=== PATIENT | male | born 1975 | race Caucasian/White ===

== ENCOUNTER 2017-09-21 14:39 | Observation (INO) | payer OTHER ==
[~2017-09-21] VITALS: Ht 175.3 cm; Wt 69.5 kg
[~2017-09-21 14:39] MED LIST: AMLODIPINE BES2.5 MG PO; DIAZEPAM5 MG PO; FLEXERIL10 MG PO; FLUOXETINE HCL40 MG PO; MOBIC15 MG PO; MORPHINE SULFAT15 M1 PO; MOTRIN400 MG PO; NASONEX17 GM BOTH NARES; OXYCODONE-APAP1 EACH PO; PERCOCET 5/31 TABLET PO; ZYRTEC10 M3 PO
[2017-09-21 15:25] LABS: EOSINOPHIL (%) 1.3 % (0-5); EOSINOPHIL COUNT 0.1 K/uL (0-0.3); HEMATOCRIT 39.9 % (38.0-50.0); IMMATURE GRANULOCYTE (%) 0.2 % (0.0-0.7); INSTRUMENT ABS NEUTROPHIL CT 7.7 K/uL; LYMPHOCYTE COUNT 1.7 K/uL (1.0-2.8); MCH 30.3 PG (29.0-34.0); MCHC 35.1 G/DL (30.0-36.0); MCV 86.4 FL (86-99); MEAN PLAT.VOLUME 9.3 uM^3 (9.0-12.4); MONOCYTE (%) 5.2 % (3-12); MONOCYTE COUNT 0.5 K/uL (0-0.8); NEUTROPHIL (%) 76.3 % (45-76); NEUTROPHIL COUNT 7.7 K/uL (1.8-6.4); PLATELET COUNT 189 K/uL (156-360); RBC DIS.WIDTH-CV 11.9 % (11.8-14.6); RBC DIS.WIDTH-SD 37.9 % (39-53); RED BLOOD COUNT 4.62 M/uL (4.00-5.50); WHITE BLOOD COUNT 10.1 K/uL (4.1-10.2)
[2017-09-21 15:40] LABS: CHLORIDE 107 mEq/L (99-109); POTASSIUM 3.8 mEq/L (3.7-5.4); SODIUM 138 mEq/L (136-147)
[2017-09-21 15:42] LABS: GLUCOSE 107 mg/dL (70-99)
[2017-09-21 15:43] LABS: ANION GAP 9 MEQ/L (2-14)
[2017-09-21 15:44] LABS: TOTAL BILIRUBIN 0.5 mg/dL (0.0-1.0)
[2017-09-21 15:45] LABS: ALKALINE PHOSPHATASE 65 IU/L (3-129); TROP-I INTERPRETATION NEGATIVE; TROPONIN-I < 0.01 ng/mL (0.0-0.30)
[2017-09-21 15:46] LABS: CK-MB 0.7 ng/mL (0.0-4.9); GFR ESTIMATE (CALCULATED) > 59 mL/min/
[2017-09-21 15:47] LABS: UREA NITROGEN (BUN) 17 mg/dL (9-23)
[2017-09-21 15:49] LABS: CREATINE KINASE 61 IU/L (1-294); TOTAL CK 61 IU/L (1-294)
[2017-09-21] MEDS ORDERED: EXCEDRIN EXTRA1 EACH PO (17:30)
[2017-09-21] MEDS ORDERED: KEPPRA500 MG PO (17:30)
[2017-09-21] MEDS ORDERED: VALACYCLOVIR1000 MG PO (17:30)
[2017-09-21] MEDS ORDERED: GABAPENTIN300 MG PO (17:30)
[2017-09-21 20:36] VITALS: BP 123/76
[2017-09-21 23:47] VITALS: BP 126/76
[2017-09-21 23:55] LABS: ADD MIUA? NO; BILIRUBIN NEGATIVE; BLOOD NEGATIVE; COLOR YELLOW ((YELLOW)); GLUCOSE (STRIP) NEGATIVE; KETONES NEGATIVE; LEUKOCYTES NEGATIVE; NITRITE NEGATIVE; PROTEIN (STRIP) NEGATIVE; SPECIFIC GRAVITY 1.023 (1.000-1.030); UROBILINOGEN 0.2 MG/DL (0.2-1.0)
[2017-09-22 00:11] LABS: AMPHETAMINES QUANT VALUE 0 NG/ML; BARBITUATES QUANT VALUE 0 NG/ML; BENZODIAZEPINES QUANT VALUE 0 NG/ML; BENZODIAZEPINES, URINE SCREEN Negative (200 ng/mL); OPIATES QUANTITATIVE VALUE 0 NG/ML; PHENCYCLIDINE QUANT VALUE 0 NG/ML
[2017-09-22 04:01] VITALS: BP 116/74
[2017-09-22 05:59] LABS: HEMATOCRIT 39.6 % (38.0-50.0); MCH 30.7 PG (29.0-34.0); MCHC 34.6 G/DL (30.0-36.0); MCV 88.8 FL (86-99); MEAN PLAT.VOLUME 9.5 uM^3 (9.0-12.4); PLATELET COUNT 175 K/uL (156-360); RBC DIS.WIDTH-SD 38.5 % (39-53); RED BLOOD COUNT 4.46 M/uL (4.00-5.50); WHITE BLOOD COUNT 7.5 K/uL (4.1-10.2)
[2017-09-22 06:26] LABS: ANION GAP 8 MEQ/L (2-14); CHLORIDE 108 MEQ/L (99-109); GFR ESTIMATE (CALCULATED) > 59 mL/min/; GLUCOSE 81 mg/dL (70-99); POTASSIUM 3.7 MEQ/L (3.7-5.4); SAMPLE HEMOLYSIS CHECK 0; SAMPLE ICTERIC CHECK 0; SAMPLE LIPEMIA CHECK 0; SODIUM 141 MEQ/L (136-147); UREA NITROGEN (BUN) 15 mg/dL (9-23)
[2017-09-22 07:55] VITALS: BP 120/73
== END 2017-09-22 09:55 | disposition left against medical advice (07) ==
LOC: EME 14:39 → EDOF 18:58 → 5WEST 18:58 → EDOF 18:58 → 5WEST 18:58 → ENRESERV 19:06 → 5WEST 20:24
PROVIDERS: Emergency Medicine; Hospitalist
DX: G40.909 Epilepsy, unspecified, not intractable, without status epilepticus (principal); M54.5 Low back pain; G89.29 Other chronic pain; S19.9XXA Unspecified injury of neck, initial encounter; W18.30XA Fall on same level, unspecified, initial encounter; G43.909 Migraine, unspecified, not intractable, without status migrainosus; F32.9 Major depressive disorder, single episode, unspecified; F17.210 Nicotine dependence, cigarettes, uncomplicated; Z79.891 Long term (current) use of opiate analgesic; Z95.0 Presence of cardiac pacemaker; Z86.61 Personal history of infections of the central nervous system; Z82.49 Family history of ischemic heart disease and other diseases of the circulatory system
CPT/HCPCS: 70450; 72100; 72125; 80048; 80053; 80306 90; 81003; 82550; 82553; 84484; 85025; 85027; 93005; 99281; 99285; G0378; J7030